=== PATIENT | female | born 1990 | race Caucasian/White ===

== ENCOUNTER 2021-11-10 02:55 | Inpatient (IN) | payer OTHER ==
[~2021-11-10] VITALS: Ht 157.5 cm; Wt 59.0 kg
[2021-11-10 03:03] VITALS: BP 77/55
--- NOTE | 2021-11-10 03:18 | NUR ---
pt taken to bed 12.ermd examining pt.
[2021-11-10] MEDS ORDERED: diphenhydrAMINE 50 MG/ML VIAL IVP ONE (03:20)
[2021-11-10] MEDS ORDERED: LACTATED RINGERS 1,000 ML IV ONE ×2 (03:20→04:40)
[2021-11-10] MEDS ORDERED: METOCLOPRAMIDE 10 MG/2 ML INJ VIAL IVP ONE (03:20)
--- NOTE | 2021-11-10 03:35 | NUR ---
31 Y/O FEMALE BIB FAMILY, C/O NAUSEA. PATIENT PRESENTS TO ED WITH NAUSEA, BODY ACHES, PALE SKIN AND EXCORIATION TO HEELS. PT STATES SHE WAS RECENTLY ADMITTED TO [facility] FOR DKA FOR 2-3 DAYS. PT WAS D/C FROM [facility] X1 DAY AGO. PT NO LONGER PRODUCES URINE. DENIES DIARRHEA AND CONSTIPATION; SKIN IS PALE/COOL/DRY; AAOX4 WITH WEAK GAIT; HR EVEN AND TACHYCARDIC; PT DENIES ANY FEVER, CP, SOB, OR COUGH AT THIS TIME; VSS; PATIENT POSITIONED FOR COMFORT; HOB ELEVATED; BEDRAILS UP X2; BED DOWN. ER MD MADE AWARE OF PT STATUS. PT HAS PE CATHETER ON LEFT ABDOMEN AND DIALYSIS SHUNT ON UPPER RIGHT CHEST. PT RECIEVES DIALYSIS M/W/F AND LAST GOT DIALYSIS ON SUNDAY. HX: DM, RENAL FAILURE NKDA
[2021-11-10 03:43] LABS: BASOPHILS # (AUTO) 0.1 K/uL (0.00-0.22); BASOPHILS % (AUTO) 0.8 % (0.0-2.0); EOSINOPHILS # (AUTO) 0.1 K/uL (0-0.4); EOSINOPHILS % (AUTO) 0.4 % (0.0-4.0); HEMATOCRIT 36.2 % (36-48); HEMOGLOBIN 11.6 g/dL (12.0-16.0); LYMPHOCYTES # (AUTO) 0.9 K/uL (2.5-16.5); LYMPHOCYTES % (AUTO) 6.3 % (20.5-51.1); MEAN CORPUSCULAR HEMOGLOBIN 29 pg (27-31); MEAN CORPUSCULAR HGB CONC 32 g/dL (33-37); MEAN CORPUSCULAR VOLUME 91.4 fL (80-94); MONOCYTES % (AUTO) 7.3 % (1.7-9.3); NEUTROPHILS # (AUTO) 11.6 K/uL (1.8-7.7); NEUTROPHILS % (AUTO) 85.2 % (42.2-75.2); PLATELET COUNT (AUTO) 325 K/uL (140-450); RED BLOOD CELL COUNT(AUTO) 3.96 MIL/uL (4.20-5.40); RED CELL DISTRIBUTION WIDTH 13.9 % (11.6-13.7); WHITE BLOOD COUNT (AUTO) 13.6 K/uL (4.8-10.8)
--- NOTE | 2021-11-10 03:56 | NUR ---
PT UNABLE TO MAKE URINE, PT HAS RENAL FAILURE AND ON DIALYSIS M/W/F/. URINE SAMPLE NOT COLLECTED.
[2021-11-10 03:57] LABS: ALBUMIN 3.4 g/dL (3.4-5.0); ANION GAP 18.3 (8-16); CARBON DIOXIDE 27.7 mmol/L (21-32); TOTAL BILIRUBIN 0.4 mg/dL (0.0-1.0)
[2021-11-10 03:59] LABS: CREATININE 4.3 mg/dL (0.6-1.3)
--- NOTE | 2021-11-10 04:50 | NUR ---
US AT BEDSIDE
[2021-11-10] MEDS ORDERED: METO-486 PO (06:08)
[2021-11-10] MEDS ORDERED: DIPH25TA53 PO (06:08)
--- NOTE | 2021-11-10 07:11 | NUR ---
REPORT RECEIVED FROM KHARI GARRETT FOR CONTINUITY OF CARE. PT IS A&OX4. IV SITE RT WRIST 24G INFUSING LR, INTACT, PATENT, GOOD BLOOD RETURN. SAFETY PRECAUTIONS IN PLACE. WILL CONTINUE TO MONITOR.
--- NOTE | 2021-11-10 07:11 | NUR ---
GAVE REPORT TO BARRERA GARRETT
[2021-11-10] MEDS ORDERED: LEVEMIR SUBQ (07:55)
[2021-11-10] MEDS ORDERED: LANS15EC28 PO (07:55)
[2021-11-10] MEDS ORDERED: LOSA100T1 PO (07:55)
[2021-11-10] MEDS ORDERED: FAMO-92 PO (07:55)
[2021-11-10] MEDS ORDERED: LABE200T9 PO (07:55)
[2021-11-10] MEDS ORDERED: NOVN SUBQ (07:55)
[2021-11-10] MEDS ORDERED: ONDANSETRON 4 MG/2 ML VIAL IVP ONE (08:20)
[2021-11-10] MEDS ORDERED: MORPHINE SULFATE 4 MG/ML SYR IVP ONE (08:40)
--- NOTE | 2021-11-10 08:46 | NUR ---
PT TAKEN TO CT SCAN VIA W/C
--- NOTE | 2021-11-10 08:52 | NUR ---
PT RETURNED FROM CT
--- NOTE | 2021-11-10 09:13 | NUR ---
PT RESTING COMFORTABLE IN BED.
--- NOTE | 2021-11-10 09:30 | NUR ---
Oxygen applied at 2 L per minute via NC. 02 saturation 100% by pulse oximetry.
[2021-11-10] MEDS ORDERED: HYDROcodone/APAP 5/325 MG 1 TAB TAB PO PRN (11:00)
[2021-11-10] MEDS ORDERED: ONDANSETRON 4 MG/2 ML VIAL IVP PRN (11:00)
[2021-11-10] MEDS ORDERED: NACL 0.9% 1,000 ML IV SCH (11:00)
[2021-11-10] MEDS ORDERED: cefTRIAXone 1,000 MG VIAL ONE (11:16)
[2021-11-10] MEDS ORDERED: INSULIN LISPRO SLIDING SCALE 100 UNITS/ML VIAL SUBQ PRN (11:20)
[2021-11-10] MEDS ORDERED: BLOOD GLUCOSE MONITORING 1 DEV DEV FS SCH (11:30)
[2021-11-10] MEDS ORDERED: DEXTROSE 50% 50 ML SYR IVP ONE (11:35)
[2021-11-10] MEDS ORDERED: DEXTROSE 50% 50 ML SYR IVP PRN ×2 (11:40→13:30)
--- NOTE | 2021-11-10 12:18 | NUR ---
DR CASTRO AT BEDSIDE EXAMINING PT
--- NOTE | 2021-11-10 12:28 | NUR ---
Patient will be admitted to care of DR. CASTRO. Admited to TELEMETRY. Will go to room 121B. Belongings list completed. Report to ANGEL GARRETT.
--- NOTE | 2021-11-10 12:45 | NUR ---
PT TRANSPORTED TO [facility] 121B. PT STABLE. NO S/S OF DISTRESS. CALL LIGHT IN REACH. ALL SAFETY MEASURES IN PLACE. MRSA COMPLETED
[2021-11-10] MEDS ORDERED: ONDANSETRON 4 MG/2 ML VIAL IM/IVP PRN (13:30)
[2021-11-10] MEDS ORDERED: MAG SULF 2000 MG/WATER PREMIX 50 ML IV PRN (13:30)
[2021-11-10] MEDS ORDERED: POTASSIUM CHLORIDE 10 MEQ TABER PO PRN (13:30)
[2021-11-10] MEDS ORDERED: DOCUSATE SODIUM 100 MG GELCAP PO PRN (13:30)
[2021-11-10] MEDS ORDERED: ZOLPIDEM 5 MG TAB PO PRN (13:30)
[2021-11-10] MEDS ORDERED: ACETAMINOPHEN 325 MG TAB PO PRN (13:30)
--- NOTE | 2021-11-10 13:34 | NUR ---
SKELP PROCESSOR ARRIVED TO TRANSPORT [facility]
[2021-11-10] MEDS ORDERED: METOCLOPRAMIDE 10 MG/2 ML INJ VIAL IVP PRN (13:40)
--- NOTE | 2021-11-10 15:00 | NUR ---
PT RETURNED TO [facility] 121B. PT COMPLAINS OF NAUSEA. WILL MEDICATE. CALL LIGHT IN REACH. ALL SAFETY MEASURES IN PLACE
[2021-11-10 16:00] VITALS: BP 147/87
[2021-11-10 16:04] LABS: PROTHROMBIN TIME 13.2 secs (10.8-13.4)
[2021-11-10 16:14] LABS: CHOL/HDL RATIO 3.6 (1-4.5); MAGNESIUM 2.2 mg/dL (1.8-2.4); PHOSPHORUS 4.8 mg/dL (2.5-4.9); THYROID STIMULATING HORMONE 1.28 uIU/mL (0.34-3.74)
[2021-11-10] MEDS: HYDROcodone/APAP 5/325 MG 1 TAB TAB PO PRN (16:29)
[2021-11-10] MEDS: BLOOD GLUCOSE MONITORING 1 DEV DEV FS SCH ×2 (16:39→21:42)
--- NOTE | 2021-11-10 17:39 | NUR ---
PT RESTING IN BED WITH EYES CLOSED. PT STABLE. NO S/S OF DISTRESS. CALL LIGHT IN REACH. ALL SAFETY MEASURES IN PLACE. PT ON RA
--- NOTE | 2021-11-10 18:22 | NUR ---
RENETTA NOTIFIED REGARDING PT'S HEMODIALYSIS ORDERED FOR TOMORROW.
--- NOTE | 2021-11-10 19:02 | NUR ---
pt consent signed for hemodialysis. notified dialysis nurse Moffett for dialysis 11/11/21
--- NOTE | 2021-11-10 19:18 | NUR ---
ENDORSED PT TO TWITCHELL OPERATOR NURSE.
--- NOTE | 2021-11-10 19:20 | NUR ---
RECEIVED BEDSIDE ENDORSEMENT FROM AM NURSE. PATIENT IS SLEEPING. ON ROOM AIR. NO S/S OF RESPIRATORY DISTRESS. BREATHING REGULAR UNLABORED. SAFETY MEASURES IN PLACE. CALL LIGHT ON EASY REACH. WILL CONTINUE TO MONITOR PT.
[2021-11-10 20:00] VITALS: BP 160/96
--- NOTE | 2021-11-10 21:35 | NUR ---
SCHEDULED DUE MEDICATIONS GIVEN.
[2021-11-10] MEDS: LABETALOL 200 MG TAB PO SCH (21:36)
[2021-11-10] MEDS: INSULIN LISPRO SLIDING SCALE 100 UNITS/ML VIAL SUBQ PRN (21:42)
--- NOTE | 2021-11-10 21:42 | NUR ---
BLOOD SUGAR WAS 166. HUMALOG INSULIN ADMINISTERED ORDERED PER SLIDING SCALE.
[2021-11-11] VITALS (7 sets, daily range): BP systolic 107–140; BP diastolic 67–90
--- NOTE | 2021-11-11 00:07 | NUR ---
PATIENT COMPLAINED OF NAUSEA. REGLAN PRN GIVEN ORDERED.
[2021-11-11] MEDS: MORPHINE SULFATE 2 MG/ML SYR IVP PRN ×4 (00:17→22:50)
[2021-11-11 06:02] LABS: BASOPHILS # (AUTO) 0.2 K/uL (0.00-0.22); BASOPHILS % (AUTO) 2.4 % (0.0-2.0); EOSINOPHILS # (AUTO) 0.2 K/uL (0-0.4); EOSINOPHILS % (AUTO) 2.5 % (0.0-4.0); HEMATOCRIT 33.5 % (36-48); HEMOGLOBIN 11.1 g/dL (12.0-16.0); LYMPHOCYTES # (AUTO) 1.2 K/uL (2.5-16.5); LYMPHOCYTES % (AUTO) 17.4 % (20.5-51.1); MEAN CORPUSCULAR HEMOGLOBIN 31 pg (27-31); MEAN CORPUSCULAR HGB CONC 33 g/dL (33-37); MEAN CORPUSCULAR VOLUME 91.9 fL (80-94); MONOCYTES # (AUTO) 0.5 K/uL (0.8-1.0); MONOCYTES % (AUTO) 7.9 % (1.7-9.3); NEUTROPHILS # (AUTO) 4.8 K/uL (1.8-7.7); NEUTROPHILS % (AUTO) 69.8 % (42.2-75.2); PLATELET COUNT (AUTO) 264 K/uL (140-450); RED BLOOD CELL COUNT(AUTO) 3.64 MIL/uL (4.20-5.40); RED CELL DISTRIBUTION WIDTH 14.2 % (11.6-13.7); WHITE BLOOD COUNT (AUTO) 6.9 K/uL (4.8-10.8)
[2021-11-11 06:14] LABS: MAGNESIUM 2.3 mg/dL (1.8-2.4)
[2021-11-11 06:31] LABS: ANION GAP 20.3 (8-16); CARBON DIOXIDE 23.5 mmol/L (21-32); POTASSIUM 4.8 mmol/L (3.5-5.1)
[2021-11-11 06:35] LABS: CREATININE 6.2 mg/dL (0.6-1.3)
[2021-11-11] MEDS: BLOOD GLUCOSE MONITORING 1 DEV DEV FS SCH ×4 (06:38→21:25)
[2021-11-11] MEDS: INSULIN LISPRO SLIDING SCALE 100 UNITS/ML VIAL SUBQ PRN ×4 (06:38→21:27)
--- NOTE | 2021-11-11 06:53 | NUR ---
ISAI FROM LAB CALLED REPORTED CRITICAL LAB VALUE CREATININE 6.2. NOT REPORTED TO MD PT IS DIALYSIS PT AND SCHEDULED FOR DIALYSIS TODAY.
--- NOTE | 2021-11-11 07:12 | NUR ---
PATIENT COMPLAINED OF SEVERE CHEST PAIN 06/03. MORPHINE PRN GIVEN.
--- NOTE | 2021-11-11 07:20 | NUR ---
ENDORSED TO AM NURSE FOR CONTINUITY OF CARE. PATIENT STATED PAIN IS 5/10 NOW.
--- NOTE | 2021-11-11 07:21 | NUR ---
RECEIVED PATIENT FROM MANAGER MAC NURSE FOR CONTINUITY OF CARE. PATIENT IS ON TELE MONITOR. A/A/O X4. RESPIRATORY EVEN AND UNLABORED, ON 2L OXYGEN VIA NC FOR COMFORT. NO SIGN OF DISTRESS NOTED. SKIN WARM, DRY, NON DIAPHORETIC. IV ON RIGHT WRIST 24G, INTACT AND PATENT, SALINE LOCK. HD CATH NOTED ON RIGHT UPPER CHEST, AND PERITONEAL CATH ON LEFT ABD. PATIENT REPORT PAIN TOLERABLE. ABLE TO MAKE NEED KNOWN. PLAN OF CARE DISCUSSED, PATIENT VERBALIZED UNDERSTANDING. CALL LIGHT WITHIN REACH. WILL CONTINUE TO MONITOR.
--- NOTE | 2021-11-11 08:37 | NUR ---
SPOKE WITH HD NURSE, HOLD HTN MEDICATIONS- LABETALOL 20MG AND LOSARTAN 100MG, WILL GIVE AFTER DIALYSIS.
[2021-11-11] MEDS: LOSARTAN 50 MG TAB PO SCH (09:00)
[2021-11-11] MEDS ORDERED: NON-FORMULARY ITEM (Famotidine* (Pepcid*) 40 MG) PO SCH (09:00)
[2021-11-11] MEDS: LABETALOL 200 MG TAB PO SCH ×2 (09:00→21:23)
--- NOTE | 2021-11-11 10:42 | NUR ---
PATIENT HAS BEEN SCREENED AND CATEGORIZED HIGH NUTRITION RISK. PATIENT WILL BE SEEN WITHIN 1-2 DAYS OF ADMISSION. 11/11/21-10/12/[address]
--- NOTE | 2021-11-11 10:53 | NUR ---
NOTIFIED DR CASTRO THAT PT COMPLAINS OF CHEST PAIN LIKE PRESSURE 05/03. TOBR, STAT ORDER TROPONIN, CXR, AND EKG. WILL FOLLOW ORDER.
--- NOTE | 2021-11-11 11:09 | NUR ---
TEXT DR SHAY REGARDING PATIENT C/O CHEST PAIN, AND TELE MONITOR SHOWS SR WITH ST DEPRESS. AWARE, NO NEW ORDER.
--- NOTE | 2021-11-11 12:10 | NUR ---
BS CHECK 152, 2 UNITS OF INSULIN GIVEN WITH EDUCATION, PATIENT VERBALIZED UNDERSTANDING. PATIENT TOLERATED WELL. NO SIGN OF DISTRESS NOTED. CALL LIGHT WITHIN REACH. WILL CONTINUE TO MONITOR.
--- NOTE | 2021-11-11 12:19 | NUR ---
WOUND CARE NOTE: PT. IS AAX4, PER PT. SHE FOLLOW HER FOOT DOCTOR REGULARLY AND SHE IS AWARE OF DIABETIC ULCERS BILATERAL FOOT. POC DISCUSSED WITH PT. RECOMMEND TO FOLLOW UP PODIATRY CARE OUT PATIENT. PT. VERBALIZES UNDERSTANDING. -LEFT HEEL 3X3CM BROWN STABLE ESCHAR TISSUE,KISHAN-WOUND DRY FLAKY SKIN -RIGHT HALLUX PLANTAR AREA 2X2CM BROWN STABLE ESCHAR TISSUE KISHAN-WOUND SKIN FLAT AND INTACT -RIGHT 2ND TOE 0.5X0.5CM BROWN STABLE ESCHAR TISSUE KISHAN-WOUND SKIN FLAT AND INTACT -RIGHT HEEL 2X2CM BROWN STABLE ESCHAR TISSUE, KISHAN WOUND DRY FLAKY SKIN RECOMMENDATION: -PAINT BILATERAL HEEL AND RIGHT TOES WITH BETADINE BID AND ROCHELLE. -FOOT EXAM AND FOOT CARE DAILY -PLEASE WEAR PROPER FITTED CLOSE SHOES, NO FLIP FLAPS -FOLLOW UP PODIATRY CARE OUT PATIENT.
[2021-11-11] MEDS: GAUZE TP SCH (13:00)
--- NOTE | 2021-11-11 13:39 | NUR ---
DC PLANNING: RECEIVED A CALL FROM [employer]. [phone] SPOKE WITH KARRI STARR UPDATED PATIENT'S CLINICAL, REQUESTED ALL CLINICALS TO BE FAXED TO [phone] AND RECOMMENDED HOME HEALTH FOR MEDICATION MANAGEMENT AND ADJUNCT BUSINESS INSTRUCTOR EVAL. STARR TO FOLLOW
--- NOTE | 2021-11-11 14:00 | NUR ---
PATIENT IS RESTING IN BED, DIALYSIS NURSE AT BEDSIDE, NO SIGN OF DISTRESS NOTED. CALL LIGHT WITHIN REACH. WILL CONTINUE TO MONITOR.
[2021-11-11] MEDS ORDERED: ASPIRIN 81 MG TAB.CHEW PO SCH (14:29)
[2021-11-11 14:39] LABS: BASOPHILS % (AUTO) 0.4 % (0.0-2.0); EOSINOPHILS # (AUTO) 0.2 K/uL (0-0.4); EOSINOPHILS % (AUTO) 3.4 % (0.0-4.0); HEMATOCRIT 31.5 % (36-48); HEMOGLOBIN 10.3 g/dL (12.0-16.0); LYMPHOCYTES # (AUTO) 1.5 K/uL (2.5-16.5); MEAN CORPUSCULAR HEMOGLOBIN 30 pg (27-31); MEAN CORPUSCULAR HGB CONC 33 g/dL (33-37); MONOCYTES # (AUTO) 0.6 K/uL (0.8-1.0); MONOCYTES % (AUTO) 8.7 % (1.7-9.3); NEUTROPHILS # (AUTO) 4.6 K/uL (1.8-7.7); NEUTROPHILS % (AUTO) 66.5 % (42.2-75.2); PLATELET COUNT (AUTO) 275 K/uL (140-450); RED BLOOD CELL COUNT(AUTO) 3.43 MIL/uL (4.20-5.40)
[2021-11-11] MEDS ORDERED: HEPARIN PER PHARMACY MC PRN (14:45)
[2021-11-11] MEDS ORDERED: hePARIN / DEXT 5% PREMIX 250 ML IV SCH (14:45)
--- NOTE | 2021-11-11 16:10 | NUR ---
HD FINISHED, PATIENT TOLERATED WELL. NO SIGN OF DISTRESS NOTED. CALL LIGHT WITHIN REACH. WILL CONTINUE TO MONITOR.
[2021-11-11] MEDS: hePARIN / DEXT 5% PREMIX 250 ML IV SCH (16:36)
--- NOTE | 2021-11-11 16:36 | NUR ---
HEPARIN DRIP START @700 UNITS/HR WITH 3000UNIT BOLUS, COSIGN BY CHARGE NURSE. EDUCATION GIVEN, PATIENT VERBALIZED UNDERSTANDING.
--- NOTE | 2021-11-11 19:15 | NUR ---
ENDORSED PT TO MOISTURE MACHINE TENDER NURSE FOR CONTINUITY OF CARE. PATIENT IS STABLE.
--- NOTE | 2021-11-11 19:35 | NUR ---
RECEIVED PT FROM AM NURSE IN STABLE CONDITION.BREATHING EVEN AND UNLABORED.ALL SAFETY MEASURES IN PLACE
--- NOTE | 2021-11-11 21:35 | NUR ---
ALL MEDICATIONS GIVEN..BLD GLUCOSE 304, 8 UNITS HUMALOG GIVEN AND 35 UNITS LANTUS GIVEN
[2021-11-11] MEDS: INSULIN LANTUS 100 UNITS/ML 10 ML VIAL SUBQ SCH (21:38)
[2021-11-12] VITALS: BP 132/87
[2021-11-12] MEDS: GAUZE TP SCH ×2 (01:00→12:26)
[2021-11-12] MEDS: hePARIN / DEXT 5% PREMIX 250 ML IV SCH ×4 (02:29→22:26)
[2021-11-12 04:00] VITALS: BP 119/75
--- NOTE | 2021-11-12 04:00 | NUR ---
PATIENT SLEEPING AT THIS TIME. BREATHING AND UNLABORED. ALL SAFETY PRECAUTIONS IN PLACE.
--- NOTE | 2021-11-12 06:00 | NUR ---
PT AWAKE .BLD GLUCOSE AT 113. NO INSULIN GIVEN. PT IS STABLE. NO DISTRESS NOTED.
[2021-11-12] MEDS: MORPHINE SULFATE 2 MG/ML SYR IVP PRN ×4 (06:52→22:33)
[2021-11-12] MEDS: BLOOD GLUCOSE MONITORING 1 DEV DEV FS SCH ×4 (06:55→21:10)
--- NOTE | 2021-11-12 07:20 | NUR ---
ENDORSED PATIENT TO AM NURSE FOR CONTINUITY OF CARE.
--- NOTE | 2021-11-12 07:35 | NUR ---
RECEIVED BEDSIDE REPORT FROM DAIRY EQUIPMENT MECHANIC NURSE FOR CONTINUITY OF CARE. A&OX4. ON 2L O2 NC WITH BREATHING UNLABORED. ON TELE MONITOR. AMBULATORY INDEPDNENTLY. SKIN IS WARM AND DRY. BILAT HEEL ULCERS INTACT. IV IS IN THE LEFT FA 24 GAUGE WITH HEPARIN DRIP RUNNING AT 9.5 ML/HR. RIGHT UPPER CHEST HD CATH IN PLACE. PT IS STABLE. WILL CONTINUE TO MONITOR.
[2021-11-12 08:00] VITALS: BP 121/88
[2021-11-12] MEDS: ATORVASTATIN 20 MG TAB PO SCH (08:24)
[2021-11-12] MEDS: LOSARTAN 50 MG TAB PO SCH (08:25)
[2021-11-12] MEDS: FAMOTIDINE 20 MG TAB PO SCH (08:26)
[2021-11-12] MEDS: LABETALOL 200 MG TAB PO SCH ×2 (08:26→21:04)
[2021-11-12] MEDS: ECOTRIN 81 MG TABEC PO SCH (08:26)
--- NOTE | 2021-11-12 08:30 | NUR ---
TOOLING INSPECTOR AT BEDSIDE DRAWING LABS FOR PTT, CBC, BMP. HEPARIN DRIP STILL INFUSING.
[2021-11-12 09:12] LABS: BASOPHILS # (AUTO) 0.2 K/uL (0.00-0.22); BASOPHILS % (AUTO) 3.1 % (0.0-2.0); EOSINOPHILS # (AUTO) 0.2 K/uL (0-0.4); HEMATOCRIT 32.5 % (36-48); HEMOGLOBIN 10.7 g/dL (12.0-16.0); LYMPHOCYTES # (AUTO) 1.7 K/uL (2.5-16.5); LYMPHOCYTES % (AUTO) 30.4 % (20.5-51.1); MEAN CORPUSCULAR HEMOGLOBIN 30 pg (27-31); MEAN CORPUSCULAR HGB CONC 33 g/dL (33-37); MEAN CORPUSCULAR VOLUME 91.5 fL (80-94); MONOCYTES # (AUTO) 0.5 K/uL (0.8-1.0); MONOCYTES % (AUTO) 9.5 % (1.7-9.3); PLATELET COUNT (AUTO) 307 K/uL (140-450); RED BLOOD CELL COUNT(AUTO) 3.55 MIL/uL (4.20-5.40); RED CELL DISTRIBUTION WIDTH 13.6 % (11.6-13.7); WHITE BLOOD COUNT (AUTO) 5.6 K/uL (4.8-10.8)
[2021-11-12 09:22] LABS: ANION GAP 16.6 (8-16); CARBON DIOXIDE 26.2 mmol/L (21-32); POTASSIUM 3.8 mmol/L (3.5-5.1)
[2021-11-12 09:27] LABS: MAGNESIUM 2.2 mg/dL (1.8-2.4); PHOSPHORUS 4.5 mg/dL (2.5-4.9)
--- NOTE | 2021-11-12 09:33 | NUR ---
PTT STILL PENDING. WILL WAIT FOR RESULTS TO CHANGE HEPARIN DRIP.
--- NOTE | 2021-11-12 10:15 | NUR ---
HEPARIN DRIP CHANGED FROM 9.5 TO 11 ML/HR FOR PTT OF 41.2. BOLUS OF 1500 UNITS OF HEPARIN GIVEN IVP. NO SIGNS OF BLEEDING OR BRUISING. PT IS STABLE AT THIS TIME. NEXT LAB DRAW FOR PTT AT 1615.
--- NOTE | 2021-11-12 10:49 | NUR ---
MORPHINE WAS GIVEN IVP FOR PAIN IN THE CHEST AT A SCALE OF 8/10. PT STATES IT AN ACHING PAIN. WILL CONTINUE TO MONITOR.
[2021-11-12 12:00] VITALS: BP 96/60
--- NOTE | 2021-11-12 13:42 | NUR ---
INFORMED DR. CASTRO THAT PT IS HAVING CHEST PAIN 10/10 STABBING IN CHARACTERISTIC. UNRELIEVED BY MORPHINE 2MG IVP. SHE ALSO GAVE TORB FOR TROPONIN STAT AND TO PAGE MINE MOTOR OPERATOR, DR. HAYS.
[2021-11-12] MEDS ORDERED: MORPHINE SULFATE 2 MG/ML SYR IVP SCH (14:00)
--- NOTE | 2021-11-12 14:05 | NUR ---
MORPHINE WAS GIVEN IVP FOR CHEST PAIN 07/[address] CASTRO. PT STATES THE PAIN SQUEEZING. BP WAS 114/68 PRIOR TO ADMINISTRATION OF MEDICATION. WILL CONTINUE TO MONITOR. ALSO INFORMED DR. HAYS OF THE CHEST PAIN UNRELIEVED BY MORPHINE AND THE STAT TROPONIN DRAW THAT IS PENDING. WILL WAIT FOR RESPONSE.
--- NOTE | 2021-11-12 14:08 | NUR ---
DR. HAYS AT BEDSIDE ASSESSING PT. EKG ORDERED. RT ON THEIR WAY TO COMPLETE EKG.
--- NOTE | 2021-11-12 14:30 | NUR ---
EKG COMPLETE AND DR. HAYS STATED THERE IS NO CHANGE IN THE EKG FROM EARLIER. NO NEW ORDERS.
[2021-11-12 16:00] VITALS: BP 117/81
--- NOTE | 2021-11-12 16:18 | NUR ---
CALLED [employer] TO INFORM THEM THAT THE TIMED DRAW PTT IS DUE AT 1615. THEY WILL BE HERE SHORTLY.
--- NOTE | 2021-11-12 17:46 | NUR ---
HEPARIN DRIP CHANGED TO 12.5 ML/HR. PTT LEVEL WAS 44.8 AND BOLUS OF HEPARIN GIVEN IVP 1500 UNITS.
--- NOTE | 2021-11-12 18:24 | NUR ---
PT WAS GIVEN MORPHINE FOR CHEST PAIN AT A SCALE OF 7/10. BP WAS STABLE PRIOR TO ADMINISTRATION OF MEDICATION. WILL MONITOR PAIN.
--- NOTE | 2021-11-12 19:11 | NUR ---
ENDORSED PT TO HOSPICE HOME HEALTH AIDE NURSE FOR CONTINUITY OF CARE. PT IS STABLE. PLAN OF CARE DISCUSSED.
--- NOTE | 2021-11-12 19:12 | NUR ---
RECEIVED REPORT FROM MORNING SHIFT NURSE. PATIENT IS WELL RESTED. NO ACUTE DISTRESS. O2 AT 2L VIA NC TOLERATING WELL. ONGOING HEPARIN DRIP AT 12.5 ML/HR. SAFETY MEASURES IN PLACE. CALL LIGHT WITHIN REACH. WILL CONTINUE TO MONITOR.
[2021-11-12 20:00] VITALS: BP 119/71
--- NOTE | 2021-11-12 21:04 | NUR ---
DUE MEDS GIVEN ORDERED.
--- NOTE | 2021-11-12 21:10 | NUR ---
BLOOD SUGAR WAS 210. HUMALOG INSULIN ADMINISTERED ORDERED PER SLIDING SCALE.
[2021-11-12] MEDS: INSULIN LISPRO SLIDING SCALE 100 UNITS/ML VIAL SUBQ PRN (21:11)
[2021-11-12] MEDS: INSULIN LANTUS 100 UNITS/ML 10 ML VIAL SUBQ SCH (21:12)
[2021-11-13] VITALS: BP 103/65
--- NOTE | 2021-11-13 01:08 | NUR ---
NELDA FROM LAB CALLED REPORTING CRITICAL ABNORMAL LAB. NO CHANGE FOR HEPARIN DRIP PER PROTOCOL.
[2021-11-13] MEDS: GAUZE TP SCH ×2 (01:12→12:59)
[2021-11-13 04:00] VITALS: BP 123/81
[2021-11-13] MEDS: MORPHINE SULFATE 2 MG/ML SYR IVP PRN ×4 (04:07→23:07)
--- NOTE | 2021-11-13 04:07 | NUR ---
MORPHINE WAS GIVEN FOR CHEST PAIN 05/03.
[2021-11-13] MEDS: BLOOD GLUCOSE MONITORING 1 DEV DEV FS SCH ×4 (06:33→22:44)
--- NOTE | 2021-11-13 06:33 | NUR ---
CHECKED BLOOD SUGAR WAS 227, HUMALOG INSULIN GIVEN ORDERED PER SLIDING SCALE.
[2021-11-13] MEDS: INSULIN LISPRO SLIDING SCALE 100 UNITS/ML VIAL SUBQ PRN ×3 (06:34→22:51)
--- NOTE | 2021-11-13 07:15 | NUR ---
RECEIVED BEDSIDE REPORT FROM HEADER BOSS NURSE FOR CONTINUITY OF CARE. PT IS AWAKE AND ALERT. A&OX4. ON 2L O2 NC WITH BREATHING UNLABORED. ON TELE MONITOR. AMBULATORY INDEPENDENTLY. SKIN IS WARM AND DRY. BILATERAL HEEL ULCER AND RIGHT FOOT BIG TOE ULCER. RIGHT UPPER CHEST PERMACATH. LEFT HAND 22 GAUGE RUNNING HEPARIN DRIP AT 12.5 ML/HR. PT IS STABLE. DENIES CHEST PAIN. PLAN OF CARE DISCUSSED.
--- NOTE | 2021-11-13 07:17 | NUR ---
ENDORSED PATIENT TO AM RN FOR CONTINUITY OF CARE. PT IS STABLE
[2021-11-13 07:35] LABS: BASOPHILS % (AUTO) 0.3 % (0.0-2.0); EOSINOPHILS # (AUTO) 0.2 K/uL (0-0.4); EOSINOPHILS % (AUTO) 3.8 % (0.0-4.0); HEMATOCRIT 31.2 % (36-48); HEMOGLOBIN 10.2 g/dL (12.0-16.0); LYMPHOCYTES # (AUTO) 1.6 K/uL (2.5-16.5); LYMPHOCYTES % (AUTO) 32.7 % (20.5-51.1); MEAN CORPUSCULAR HEMOGLOBIN 30 pg (27-31); MEAN CORPUSCULAR HGB CONC 33 g/dL (33-37); MEAN CORPUSCULAR VOLUME 91.2 fL (80-94); MONOCYTES # (AUTO) 0.4 K/uL (0.8-1.0); MONOCYTES % (AUTO) 9.1 % (1.7-9.3); NEUTROPHILS # (AUTO) 2.7 K/uL (1.8-7.7); NEUTROPHILS % (AUTO) 54.1 % (42.2-75.2); PLATELET COUNT (AUTO) 308 K/uL (140-450); RED BLOOD CELL COUNT(AUTO) 3.42 MIL/uL (4.20-5.40); RED CELL DISTRIBUTION WIDTH 13.8 % (11.6-13.7); WHITE BLOOD COUNT (AUTO) 4.9 K/uL (4.8-10.8)
[2021-11-13 07:39] LABS: ANION GAP 17.4 (8-16); CARBON DIOXIDE 26.7 mmol/L (21-32); POTASSIUM 4.1 mmol/L (3.5-5.1)
--- NOTE | 2021-11-13 07:52 | NUR ---
RECEIVED CRITICAL FROM LAB FOR PTT 64.6. PT ON HEPARIN DRIP. NO CHANGE IN HEPARIN DRIP AT THIS TIME, WITHIN THERAPEUTIC RANGE. HEPARIN DRIP IS INFUSING AT 12.5 ML/HR. NEXT LAB DRAW FOR PTT WILL BE IN 24 HOURS; 0700 AM 11/14/21.
[2021-11-13] MEDS: hePARIN / DEXT 5% PREMIX 250 ML IV SCH ×2 (07:55→18:15)
[2021-11-13 07:58] LABS: MAGNESIUM 2.3 mg/dL (1.8-2.4); PHOSPHORUS 7.4 mg/dL (2.5-4.9)
[2021-11-13 08:00] VITALS: BP 119/81
[2021-11-13 08:41] LABS: CREATININE 6.9 mg/dL (0.6-1.3)
[2021-11-13] MEDS: LOSARTAN 50 MG TAB PO SCH (09:00)
--- NOTE | 2021-11-13 09:23 | NUR ---
PT STATES SHE HAS PAIN AT A SCALE OF 7/10 IN THE CHEST. PT STATES THE PAIN PRESSURE. PT WAS GIVEN MORPHINE FOR PAIN ORDERED. BP STABLE PRIOR TO ADMINISTRATION OF MEDICATION.
[2021-11-13] MEDS: ATORVASTATIN 20 MG TAB PO SCH (09:24)
[2021-11-13] MEDS: LABETALOL 200 MG TAB PO SCH ×2 (09:24→22:44)
[2021-11-13] MEDS: ECOTRIN 81 MG TABEC PO SCH (09:24)
[2021-11-13 12:00] VITALS: BP 110/72
--- NOTE | 2021-11-13 12:00 | NUR ---
PT IS AWAKE AND ALERT. LAYING IN BED, WATCHING TV. NO DISTRESS NOTED AT THIS TIME. HEPARIN DRIP INFUSING IN LEFT HAND IV. DENIES PAIN. WILL CONTINUE TO MONITOR.
[2021-11-13] MEDS: HYDROcodone/APAP 5/325 MG 1 TAB TAB PO PRN (13:55)
--- NOTE | 2021-11-13 13:55 | NUR ---
PT IS STATING SHE HAS PAIN AT A SCALE OF 6/10 IN THE CHEST. PT WAS GIVEN NORCO FOR PAIN. WILL CONTINUE TO MONITOR PAIN.
[2021-11-13 16:00] VITALS: BP 118/65
--- NOTE | 2021-11-13 17:00 | NUR ---
PT IS AWAKE AND STABLE AT THIS TIME. NO COMPLAINTS. DENIES CHEST PAIN. WOUNDS ON FEET WERE CLEANSED PER PROTOCOL. WILL CONTINUE TO MONITOR.
--- NOTE | 2021-11-13 18:16 | NUR ---
PT WAS GIVEN MORPHINE FOR PAIN IN THE CHEST 04/02. BP WAS STABLE PRIOR TO ADMINISTRATION OF MEDICATION. HEPARIN BAG WAS CHANGED, RATE STAYED THE SAME 12.5 ML/HR. NEXT PTT DRAW AT 0700 AM TOMORROW.
--- NOTE | 2021-11-13 19:19 | NUR ---
ENDORSED PT TO BANQUET SET UP PERSON NURSE FOR CONTINUITY OF CARE. PT IS STABLE. PLAN OF CARE DISCUSSED.
--- NOTE | 2021-11-13 20:25 | NUR ---
HANDOFF FROM TAMI WALL. SPOKE WITH TAMI JACKSON, FOR HEMODIALYSIS IN AM. GIL OSCAR RN
[2021-11-13 22:41] VITALS: BP 108/66
[2021-11-13] MEDS: INSULIN LANTUS 100 UNITS/ML 10 ML VIAL SUBQ SCH (22:50)
[2021-11-14 00:34] VITALS: BP 141/80
[2021-11-14] MEDS: GAUZE TP SCH ×2 (01:30→13:00)
[2021-11-14 04:32] VITALS: BP 118/65
[2021-11-14] MEDS: MORPHINE SULFATE 2 MG/ML SYR IVP PRN (04:41)
--- NOTE | 2021-11-14 06:54 | NUR ---
HANDOFF WITH TAMI CARL. GIL OSCAR RN
[2021-11-14] MEDS: BLOOD GLUCOSE MONITORING 1 DEV DEV FS SCH ×4 (07:04→20:48)
--- NOTE | 2021-11-14 07:30 | NUR ---
RECEIVED REPORT FROM DRUG ROOM CLERK NURSE FOR CONTINUITY OF CARE. PT AWAKE IN BED. BREATHING SYMMETRICAL. ON HEPARIN DRIP. DENIES PAIN. CALL LIGHT WITHIN REACH. ALL SAFETY MEASURES IN PLACE.
[2021-11-14 08:00] VITALS: BP 124/80
--- NOTE | 2021-11-14 08:30 | NUR ---
PT RECEIVING HEMODIALYSIS AT THIS TIME
[2021-11-14 08:49] LABS: BASOPHILS # (AUTO) 0.2 K/uL (0.00-0.22); BASOPHILS % (AUTO) 3.9 % (0.0-2.0); EOSINOPHILS # (AUTO) 0.2 K/uL (0-0.4); EOSINOPHILS % (AUTO) 4.2 % (0.0-4.0); HEMATOCRIT 29.6 % (36-48); HEMOGLOBIN 9.8 g/dL (12.0-16.0); LYMPHOCYTES # (AUTO) 1.3 K/uL (2.5-16.5); LYMPHOCYTES % (AUTO) 28.2 % (20.5-51.1); MEAN CORPUSCULAR HEMOGLOBIN 30 pg (27-31); MEAN CORPUSCULAR HGB CONC 33 g/dL (33-37); MEAN CORPUSCULAR VOLUME 90.8 fL (80-94); MONOCYTES # (AUTO) 0.2 K/uL (0.8-1.0); MONOCYTES % (AUTO) 4.3 % (1.7-9.3); NEUTROPHILS # (AUTO) 2.6 K/uL (1.8-7.7); NEUTROPHILS % (AUTO) 59.4 % (42.2-75.2); PLATELET COUNT (AUTO) 321 K/uL (140-450); RED BLOOD CELL COUNT(AUTO) 3.26 MIL/uL (4.20-5.40); RED CELL DISTRIBUTION WIDTH 13.8 % (11.6-13.7); WHITE BLOOD COUNT (AUTO) 4.4 K/uL (4.8-10.8)
[2021-11-14] MEDS: ECOTRIN 81 MG TABEC PO SCH (09:00)
[2021-11-14] MEDS: LABETALOL 200 MG TAB PO SCH ×2 (09:00→21:00)
[2021-11-14] MEDS: ATORVASTATIN 20 MG TAB PO SCH (09:00)
[2021-11-14] MEDS: LOSARTAN 50 MG TAB PO SCH (09:00)
[2021-11-14] MEDS: FAMOTIDINE 20 MG TAB PO SCH (09:00)
[2021-11-14 09:17] LABS: CREATININE 7.2 mg/dL (0.6-1.3)
[2021-11-14 09:19] LABS: MAGNESIUM 2.2 mg/dL (1.8-2.4); PHOSPHORUS 5.9 mg/dL (2.5-4.9)
--- NOTE | 2021-11-14 09:30 | NUR ---
REPORTED CREATININE LEVEL 7.[address] REDDY, NO CHANGES AT THIS TIME. PT HAS ESRD AND IS RECEIVING HEMODIALYSIS AT THIS TIME
--- NOTE | 2021-11-14 10:25 | NUR ---
REPORTED PTT RESULT 110.[address] REDDY. PT ON HEPARIN DRIP, PER PROTOCOL HOLD FOR ONE HOUR AND REDUCE BY 200UNITS. HEPARIN DRIP HELD AT THIS TIME AND WILL TURN ON AT 1125. FOR PTT AT 1725
--- NOTE | 2021-11-14 11:10 | NUR ---
PT DONE WITH HEMODIALYSIS, 1.6L WERE TAKEN OUT.
--- NOTE | 2021-11-14 11:31 | NUR ---
HEPARIN DRIP STARTED AGAIN, REDUCED DRIP TO 1050UNITS/HR. PER PROTOCOL TO HOLD FOR 1 HR AND REDUCE 200UNITS/HR AND START. TO DRAW PTT IN 6HRS WHICH IS 1725.
--- NOTE | 2021-11-14 11:40 | NUR ---
SPOKE WITH ERIN FROM LABS RE: PTT BLOOD DRAW. PT NOT FOR PTT BLOOD DRAW AT 1125, UNABLE TO DC ORDER BUT PT IS FOR PTT BLOOD DRAW AT 1725.
[2021-11-14 12:00] VITALS: BP 107/64
--- NOTE | 2021-11-14 13:47 | NUR ---
INSERTED ANOTHER IV LINE ON RIGHT HAND 22G PT FOR LEXISCAN. PT HAS IV LINE ON LEFT HAND 22G BUT INFUSING WITH HEPARIN DRIP.
[2021-11-14] MEDS ORDERED: REGADENOSON 0.4 MG/5 ML SYR IV SCH (14:00)
--- NOTE | 2021-11-14 14:08 | NUR ---
CLARIFIED AND VERIFIED WITH DR REDDY REGARDING DC HEPARIN DRIP ORDER. STATED DC.
--- NOTE | 2021-11-14 14:10 | NUR ---
PT TAKEN TO LAB TO SANGEETA PROCEDURE VIA WHEELCHAIR
--- NOTE | 2021-11-14 14:15 | NUR ---
DC PLANNING: CM SPOKE WITH THE PATIENT AT BEDSIDE, CONFIRMED HER ADDRESS AND PHONE NUMBER. SHE LIVES IN A SINGLE STORY HOUSE WITH HER SISTER AND UNCLE AND IS ON SSI BECAUSE Of HER ESRD. SHE GOES TO [facility] ON M,W,F FROM 9 AM TO 12 PM AND USES [facility] TRANSPORT. SHE SEES HER PCP MARK MERRILL MONTHLY AND HAS DME OF GLUCOMETER AND FWW. STATES THAT SHE'S NOT COMPLIANT WITH AN ADA DIET AND HAS BEEN SEEING A STACKER STRAIGHTENER BECAUSE OF FOOT BLISTERS. SHE USES A FWW TO WALK LONG DISTANCES AND WAS REFERRED TO [facility] VIA [employer] FOR A SAFETY EVALUATION AND MEDICATION OVERSIGHT FOR COMPLIANCE. CM WILL FOLLOW. Addendum: 11/14/21 at 1428 by Park Gil CM Amended: Links added. Addendum: 11/15/21 at 1033 by Park Gil CM DC PLANNING: RO SPOKE WITH ALBINA AT [facility] ([phone]), THEY HAVE ACCEPTED THE PATIENT PENDING DISCHARGE. CM ENDORSED THAT THE PATIENT WILL DC HOME TODAY AND THAT A MESSAGE WAS LEFT FOR THE RO ZENG AT [facility] REGARDING A DOCUMENT THAT [facility] NEEDS TO START SERVICE. CM WILL FOLLOW.
[2021-11-14] MEDS ORDERED: EPOETIN ALFA-EPBX 4,000 UNITS/ML VIAL IV SCH (15:00)
[2021-11-14 16:00] VITALS: BP 115/70
--- NOTE | 2021-11-14 16:00 | NUR ---
PT BACK FROM LEXISCAN PROCEDURE. IN STABLE CONDITION AT THIS TIME
[2021-11-14] MEDS: INSULIN LISPRO SLIDING SCALE 100 UNITS/ML VIAL SUBQ PRN (16:31)
[2021-11-14] MEDS ORDERED: EPOETIN ALFA-EPBX 4,000 UNITS/ML VIAL SUBQ SCH (16:37)
[2021-11-14] MEDS: HYDROcodone/APAP 5/325 MG 1 TAB TAB PO PRN (18:10)
--- NOTE | 2021-11-14 19:00 | NUR ---
PT CURRENTLY ON NPO EXCEPT MEDS DIET DUE TO LEXISCAN PROCEDURE. PT IS DONE WITH LEXISCAN THIS AFTERNOON. DR REDDY MADE AWARE, TO RESUME RENAL DIET.
--- NOTE | 2021-11-14 19:23 | NUR ---
ENDORSED PT TO MOSAIC TECHNICIAN NURSE, PT IN STABLE CONDITION
[2021-11-14 20:00] VITALS: BP 88/44
[2021-11-14] MEDS: INSULIN LANTUS 100 UNITS/ML 10 ML VIAL SUBQ SCH (20:48)
[2021-11-15] MEDS: GAUZE TP SCH ×2 (01:05→12:48)
[2021-11-15] MEDS: MORPHINE SULFATE 2 MG/ML SYR IVP PRN ×4 (03:42→19:26)
[2021-11-15 04:00] VITALS: BP 146/93
[2021-11-15] MEDS: FAMOTIDINE 20 MG TAB PO SCH (05:48)
[2021-11-15 06:16] LABS: BASOPHILS # (AUTO) 0.3 K/uL (0.00-0.22); BASOPHILS % (AUTO) 4.4 % (0.0-2.0); EOSINOPHILS # (AUTO) 0.2 K/uL (0-0.4); EOSINOPHILS % (AUTO) 2.7 % (0.0-4.0); HEMATOCRIT 33.7 % (36-48); LYMPHOCYTES # (AUTO) 1.2 K/uL (2.5-16.5); LYMPHOCYTES % (AUTO) 20.9 % (20.5-51.1); MEAN CORPUSCULAR HEMOGLOBIN 30 pg (27-31); MEAN CORPUSCULAR HGB CONC 33 g/dL (33-37); MEAN CORPUSCULAR VOLUME 91.2 fL (80-94); MONOCYTES # (AUTO) 0.5 K/uL (0.8-1.0); MONOCYTES % (AUTO) 8.2 % (1.7-9.3); NEUTROPHILS # (AUTO) 3.8 K/uL (1.8-7.7); NEUTROPHILS % (AUTO) 63.8 % (42.2-75.2); PLATELET COUNT (AUTO) 362 K/uL (140-450)
[2021-11-15 06:36] LABS: ANION GAP 18.7 (8-16); CARBON DIOXIDE 26.8 mmol/L (21-32); POTASSIUM 4.5 mmol/L (3.5-5.1)
[2021-11-15 06:42] LABS: MAGNESIUM 2.3 mg/dL (1.8-2.4); PHOSPHORUS 6.4 mg/dL (2.5-4.9)
[2021-11-15] MEDS: BLOOD GLUCOSE MONITORING 1 DEV DEV FS SCH ×3 (07:00→17:04)
[2021-11-15] MEDS: INSULIN LISPRO SLIDING SCALE 100 UNITS/ML VIAL SUBQ PRN ×3 (07:01→17:07)
--- NOTE | 2021-11-15 07:30 | NUR ---
RECEIVED REPORT FROM MANAGER INVESTIGATIONS NURSE FOR CONTINUITY OF CARE. PT ASLEEP IN BED. BREATHING SYMMETRICAL. FLACC 0. CALL LIGHT WITHIN REACH. ALL SAFETY MEASURES IN PLACE.
[2021-11-15 07:33] LABS: CREATININE 6.1 mg/dL (0.6-1.3)
--- NOTE | 2021-11-15 07:35 | NUR ---
SPOKE WITH COLTON FROM LAB REGARDING CREATININE 6.1, REPORTED TO DR HARVEY, NO CHANGE IN ORDERS AT THIS TIME. DR HARVEY ALSO MADE AWARE THAT PT HAS ESRD AND IS RECEIVING HEMODIALYSIS Q --
[2021-11-15 08:00] VITALS: BP 155/98
[2021-11-15] MEDS: ATORVASTATIN 20 MG TAB PO SCH (09:38)
[2021-11-15] MEDS: LOSARTAN 50 MG TAB PO SCH (09:38)
[2021-11-15] MEDS: ECOTRIN 81 MG TABEC PO SCH (09:38)
[2021-11-15] MEDS: LABETALOL 200 MG TAB PO SCH (09:39)
--- NOTE | 2021-11-15 10:20 | NUR ---
CALLED BY PT, NOTED LEFT HAND IV LINE ALREADY OUT. NO ACTIVE BLEEDING NOTED. RIGHT WRIST IV LINE 22G STILL INTACT.
[2021-11-15 12:00] VITALS: BP 161/101
--- NOTE | 2021-11-15 12:31 | NUR ---
PT'S BP IS 161/101, DENIES HEADACHE/DIZZINESS. LEFT MESSAGE TO DR HARVEY, AWAITING RESPONSE.
--- NOTE | 2021-11-15 12:43 | NUR ---
RECEIVED ORDER FROM DR HARVEY FOR ONE TIME DOSE OF HYDRALAZINE 50MG. PT AWARE.
[2021-11-15] MEDS ORDERED: hydrALAZINE 25 MG TAB PO SCH (13:00)
[2021-11-15] MEDS ORDERED: ONDANSETRON 4 MG/2 ML VIAL IVP PRN (13:15)
--- NOTE | 2021-11-15 13:22 | NUR ---
RECEIVED ORDERS FROM DR HARVEY, PT AWARE.
[2021-11-15] MEDS ORDERED: PANTOPRAZOLE 40 MG INJ VIAL IVP SCH (13:25)
--- NOTE | 2021-11-15 13:34 | NUR ---
PROTONIX ONE TIME DOSE FOR TODAY GIVEN FOR C/O ACID REFLUX. PT MADE AWARE THAT PROTONIX WILL BE GIVEN DAILY STARTING TOMORROW.
[2021-11-15] MEDS ORDERED: LABETALOL 200 MG TAB PO SCH (15:00)
[2021-11-15] MEDS ORDERED: LANTUS SUBQ (15:15)
[2021-11-15] MEDS ORDERED: FAMO20TA13 PO (15:15)
[2021-11-15 16:00] VITALS: BP 98/51
--- NOTE | 2021-11-15 16:00 | NUR ---
LABETALOL NOT GIVEN DUE TO DECREASED BP 98/51. PT IN STABLE CONDITION
[2021-11-15 16:15] VITALS: BP 161/101
--- NOTE | 2021-11-15 17:16 | NUR ---
PT FOR DISCHARGE, AWAITING RN TELEMETRY.
--- NOTE | 2021-11-15 17:38 | NUR ---
SPOKE WITH JACKSON SISTER, STATED SHE WILL POLYGRAPH TECHNICIAN PT AT 1930 TER[address]. PT AWARE.
--- NOTE | 2021-11-15 19:09 | NUR ---
ENDORSED PT TO FEED INSPECTION SUPERVISOR NURSE. RN MADE AWARE PT IS FOR DISCHARGE, AWAITING STORE ADMINISTRATIVE ASSISTANT BY SISTER. PT IN STABLE CONDITION
--- NOTE | 2021-11-15 19:10 | NUR ---
RECEIVED PT REPORT FROM AM NURSE RE: PT'S DISCHARGE TONIGHT. POC REVIEWED FOR CONTINUITY OF CARE.
--- NOTE | 2021-11-15 19:30 | NUR ---
PT HAS DISCHARGE PAPERS. C/O 06/03 MIDDLE CHEST PRESSURE RADIATING TO CENTER BACK. RECEIVED MSO4 2MG /1ML IVP. CALL LIGHT WITHIN REACH. WILL CONTINUE TO OBSERVE.
--- NOTE | 2021-11-15 19:40 | NUR ---
REMOVED TELE BOX AND PADS FROM PT. PT LEFT MST UNIT VIA W/C @ 19:50 11/15/21 TO AWAITING VEHICLE OUTSIDE LOBBY, ACCOMPANIED BY RN. ALL PAPERS SIGNED AND PERSONAL BELONGINGS TAKEN.
[2021-11-16] MEDS ORDERED: EPOETIN ALFA-EPBX 4,000 UNITS/ML VIAL SUBQ SCH (09:00)
[2021-11-16] MEDS ORDERED: PANTOPRAZOLE 40 MG INJ VIAL IVP SCH (09:00)
== END 2021-11-15 19:45 | disposition home health service (06) | DRG 871 ==
LOC: MED 02:55 → MTU 10:52
PROC: 5A1D70Z Performance of Urinary Filtration, Intermittent, Less than 6 Hours Per Day (ICD-10-PCS; principal; 2021-11-11)
PROC: 5A1D70Z Performance of Urinary Filtration, Intermittent, Less than 6 Hours Per Day (ICD-10-PCS; 2021-11-14)
DX: A41.9 Sepsis, unspecified organism (principal); N17.0 Acute kidney failure with tubular necrosis; N18.6 End stage renal disease; J96.00 Acute respiratory failure, unspecified whether with hypoxia or hypercapnia; E10.52 Type 1 diabetes mellitus with diabetic peripheral angiopathy with gangrene; I96 Gangrene, not elsewhere classified; I13.11 Hypertensive heart and chronic kidney disease without heart failure, with stage 5 chronic kidney disease, or end stage renal disease; E10.22 Type 1 diabetes mellitus with diabetic chronic kidney disease; K82.8 Other specified diseases of gallbladder; L89.609 Pressure ulcer of unspecified heel, unspecified stage; Z20.822 Contact with and (suspected) exposure to COVID-19; D63.8 Anemia in other chronic diseases classified elsewhere; R16.0 Hepatomegaly, not elsewhere classified; N20.0 Calculus of kidney; E10.621 Type 1 diabetes mellitus with foot ulcer; L97.529 Non-pressure chronic ulcer of other part of left foot with unspecified severity; L97.519 Non-pressure chronic ulcer of other part of right foot with unspecified severity; E10.65 Type 1 diabetes mellitus with hyperglycemia; R07.89 Other chest pain; E78.5 Hyperlipidemia, unspecified; Z79.4 Long term (current) use of insulin; Z99.2 Dependence on renal dialysis; Z79.899 Other long term (current) drug therapy; Z83.3 Family history of diabetes mellitus
CPT/HCPCS: 36415; 71045; 76705; 78445; 78582; 80048; 80053; 82009; 82948; 83036; 83605; 83690; 83735; 84100; 84443; 84484; 84703; 85025; 85610; 85730; 87040; 87081; 93017; 93925; 93970; 96361; 96365; 96375; 96376; 99285; A9500; A9502; A9510; C9113; J0696; J1200; J1644; J1815; J2270; J2405; J2765; J2785; J7120; Q0092; Q5106

== ENCOUNTER 2021-11-17 12:20 | Emergency (ER) | payer OTHER ==
[~2021-11-17] VITALS: Ht 157.5 cm; Wt 52.9 kg
[2021-11-17 12:20] VITALS: BP 117/78
[~2021-11-17 12:20] MED LIST: FAMO-92 PO; FAMO20TA13 PO; LABE200T9 PO; LANS15EC28 PO; LANTUS SUBQ; LOSA100T1 PO
--- NOTE | 2021-11-17 13:03 | NUR ---
DR BARKER AT BEDSIDE EVALUATING PT
[2021-11-17] MEDS ORDERED: MORPHINE SULFATE 4 MG/ML SYR IVP ONE (13:05)
[2021-11-17] MEDS ORDERED: NACL 0.9% 1,000 ML IV ONE (13:05)
[2021-11-17] MEDS ORDERED: FAMOTIDINE 20 MG/2 ML VIAL IVP ONE (13:05)
[2021-11-17] MEDS ORDERED: ONDANSETRON 4 MG/2 ML VIAL IVP ONE (13:05)
--- NOTE | 2021-11-17 13:17 | NUR ---
RAD AT BEDSIDE
[2021-11-17] MEDS ORDERED: NACL 0.9% 250 ML IV ONE (13:30)
[2021-11-17] MEDS ORDERED: FAMOTIDINE 20 MG/2 ML VIAL ONE (13:30)
[2021-11-17 13:51] LABS: BASOPHILS # (AUTO) 0.2 K/uL (0.00-0.22); BASOPHILS % (AUTO) 2.7 % (0.0-2.0); EOSINOPHILS # (AUTO) 0.1 K/uL (0-0.4); EOSINOPHILS % (AUTO) 1.4 % (0.0-4.0); HEMOGLOBIN 10.4 g/dL (12.0-16.0); LYMPHOCYTES # (AUTO) 1.4 K/uL (2.5-16.5); MEAN CORPUSCULAR HEMOGLOBIN 30 pg (27-31); MEAN CORPUSCULAR HGB CONC 33 g/dL (33-37); MEAN CORPUSCULAR VOLUME 91.8 fL (80-94); MONOCYTES # (AUTO) 0.9 K/uL (0.8-1.0); MONOCYTES % (AUTO) 11.6 % (1.7-9.3); NEUTROPHILS # (AUTO) 5.1 K/uL (1.8-7.7); NEUTROPHILS % (AUTO) 66.3 % (42.2-75.2); PLATELET COUNT (AUTO) 331 K/uL (140-450); RED BLOOD CELL COUNT(AUTO) 3.49 MIL/uL (4.20-5.40); RED CELL DISTRIBUTION WIDTH 13.8 % (11.6-13.7); WHITE BLOOD COUNT (AUTO) 7.7 K/uL (4.8-10.8)
[2021-11-17 14:30] LABS: ALBUMIN 3.3 g/dL (3.4-5.0); CARBON DIOXIDE 18.1 mmol/L (21-32); POTASSIUM 4.1 mmol/L (3.5-5.1); TOTAL BILIRUBIN 0.6 mg/dL (0.0-1.0)
[2021-11-17 15:07] LABS: CREATININE 6.5 mg/dL (0.6-1.3)
[2021-11-17] MEDS ORDERED: ASPIRIN 325 MG TAB PO ONE (15:40)
--- NOTE | 2021-11-17 15:46 | NUR ---
JACKSNO SWABBED AND TAKEN TO LAB
[2021-11-17] MEDS ORDERED: AMLO2.5T PO (16:17)
--- NOTE | 2021-11-17 17:18 | NUR ---
PT STATES INCREASED BURPING, PAIN AFTER PO CHALLENGE.
--- NOTE | 2021-11-17 18:05 | NUR ---
PT GIVEN SALTINES, TATO, AND PUDDING, PER REQUEST
[2021-11-17] MEDS ORDERED: ALUM355S59 PO (18:43)
[2021-11-17] MEDS ORDERED: DIPH25TA53 PO (18:43)
[2021-11-17] MEDS ORDERED: METO-485 PO (18:43)
[2021-11-17 18:56] VITALS: BP 128/75
--- NOTE | 2021-11-17 19:11 | NUR ---
Patient discharged with v/s stable. Written and verbal after care instructions given REGARDING N/V and explained. Patient alert, oriented and verbalized understanding of instructions. Ambulatory with steady gait. All questions addressed prior to discharge. ID band removed. Patient advised to follow up with PMD. Rx of MAALOX, BENADRYL, REGLAN given. Patient educated on indication of medication including possible reaction and side effects. Opportunity to ask questions provided and answered.
== END 2021-11-17 19:11 | disposition home or self-care (01) ==
LOC: MED 12:20
DX: K80.42 Calculus of bile duct with acute cholecystitis without obstruction (principal); Z20.822 Contact with and (suspected) exposure to COVID-19; E11.22 Type 2 diabetes mellitus with diabetic chronic kidney disease; I12.0 Hypertensive chronic kidney disease with stage 5 chronic kidney disease or end stage renal disease; N18.6 End stage renal disease
CPT/HCPCS: 36415; 71045; 80053; 83605; 83690; 83880; 84484; 85025; 87040; 87426; 93005; 96361; 96374; 96375; 99285; J2270; J2405; J3490; J7030

== ENCOUNTER 2021-11-21 15:49 | Emergency (ER) | payer OTHER ==
[~2021-11-21] VITALS: Ht 157.5 cm; Wt 59.0 kg
[~2021-11-21 15:49] MED LIST changes: +ALUM355S59 PO; +AMLO2.5T PO; +DIPH25TA53 PO; -FAMO-92 PO; -FAMO20TA13 PO; -LABE200T9 PO; -LANS15EC28 PO; +METO-485 PO
[2021-11-21 16:05] VITALS: BP 138/99
[2021-11-21] MEDS ORDERED: ACETAMINOPHEN EXTRA STRENGTH 500 MG TAB PO ONE ×2 (17:35→20:20)
[2021-11-21] MEDS ORDERED: IBUPROFEN 600 MG TAB PO ONE (18:10)
[2021-11-21 18:54] LABS: BASOPHILS # (AUTO) 0.1 K/uL (0.00-0.22); BASOPHILS % (AUTO) 1.2 % (0.0-2.0); EOSINOPHILS # (AUTO) 0.3 K/uL (0-0.4); EOSINOPHILS % (AUTO) 3.8 % (0.0-4.0); HEMATOCRIT 26.7 % (36-48); HEMOGLOBIN 8.9 g/dL (12.0-16.0); LYMPHOCYTES % (AUTO) 14.2 % (20.5-51.1); MEAN CORPUSCULAR HEMOGLOBIN 30 pg (27-31); MEAN CORPUSCULAR HGB CONC 33 g/dL (33-37); MONOCYTES # (AUTO) 0.5 K/uL (0.8-1.0); MONOCYTES % (AUTO) 7.3 % (1.7-9.3); NEUTROPHILS # (AUTO) 5.4 K/uL (1.8-7.7); NEUTROPHILS % (AUTO) 73.5 % (42.2-75.2); PLATELET COUNT (AUTO) 258 K/uL (140-450); RED BLOOD CELL COUNT(AUTO) 2.93 MIL/uL (4.20-5.40); RED CELL DISTRIBUTION WIDTH 14.2 % (11.6-13.7); WHITE BLOOD COUNT (AUTO) 7.4 K/uL (4.8-10.8)
[2021-11-21 19:21] LABS: ALBUMIN 2.9 g/dL (3.4-5.0); CARBON DIOXIDE 27.4 mmol/L (21-32); POTASSIUM 4.4 mmol/L (3.5-5.1); TOTAL BILIRUBIN 0.2 mg/dL (0.0-1.0)
[2021-11-21 19:23] LABS: CREATININE 4.1 mg/dL (0.6-1.3)
[2021-11-21 20:31] VITALS: BP 176/97
== END 2021-11-21 20:31 | disposition home or self-care (01) ==
LOC: MED 15:49
DX: R55 Syncope and collapse (principal); R41.0 Disorientation, unspecified; R68.83 Chills (without fever); E11.9 Type 2 diabetes mellitus without complications; I10 Essential (primary) hypertension; Z88.1 Allergy status to other antibiotic agents; Z79.899 Other long term (current) drug therapy; Z98.890 Other specified postprocedural states; Z79.4 Long term (current) use of insulin
CPT/HCPCS: 36415; 71045; 80053; 83605; 85025; 87040; 93005; 99285; Q0092

== ENCOUNTER 2021-11-22 00:50 | Emergency (ER) | payer OTHER ==
[~2021-11-22] VITALS: Ht 157.5 cm; Wt 58.2 kg
[2021-11-22 00:55] VITALS: BP 155/96
--- NOTE | 2021-11-22 01:04 | NUR ---
PT TAKEN TO BED 11
--- NOTE | 2021-11-22 01:12 | NUR ---
PT PRODUCES LITTLE TO NO URINE; UNABLE TO COLLECT UA FOR PREG OR ANALYSIS.
--- NOTE | 2021-11-22 01:17 | NUR ---
X-Ray at bedside.
--- NOTE | 2021-11-22 01:20 | NUR ---
LABS DRAWN AT BEDSIDE
--- NOTE | 2021-11-22 01:20 | NUR ---
XRAY AT BEDSIDE
[2021-11-22 01:33] LABS: BASOPHILS # (AUTO) 0.1 K/uL (0.00-0.22); BASOPHILS % (AUTO) 1.4 % (0.0-2.0); EOSINOPHILS # (AUTO) 0.2 K/uL (0-0.4); EOSINOPHILS % (AUTO) 3.5 % (0.0-4.0); HEMATOCRIT 26.9 % (36-48); HEMOGLOBIN 8.7 g/dL (12.0-16.0); LYMPHOCYTES % (AUTO) 15.9 % (20.5-51.1); MEAN CORPUSCULAR HEMOGLOBIN 30 pg (27-31); MEAN CORPUSCULAR HGB CONC 32 g/dL (33-37); MEAN CORPUSCULAR VOLUME 94.3 fL (80-94); MONOCYTES # (AUTO) 0.4 K/uL (0.8-1.0); MONOCYTES % (AUTO) 6.3 % (1.7-9.3); NEUTROPHILS # (AUTO) 4.4 K/uL (1.8-7.7); NEUTROPHILS % (AUTO) 72.9 % (42.2-75.2); PLATELET COUNT (AUTO) 244 K/uL (140-450); RED BLOOD CELL COUNT(AUTO) 2.86 MIL/uL (4.20-5.40); RED CELL DISTRIBUTION WIDTH 14.4 % (11.6-13.7)
[2021-11-22 01:46] LABS: ALBUMIN 2.8 g/dL (3.4-5.0); ANION GAP 15.8 (8-16); CARBON DIOXIDE 24.8 mmol/L (21-32); POTASSIUM 5.6 mmol/L (3.5-5.1); TOTAL BILIRUBIN 0.3 mg/dL (0.0-1.0)
[2021-11-22 01:48] LABS: CREATININE 5.2 mg/dL (0.6-1.3)
--- NOTE | 2021-11-22 01:56 | NUR ---
STATES HER DIALYSIS WAS CUT BACK 30 MINS 31 Y/O FEMALE BIB SELF, C/O DIFFICULTY BREATHING X1 DAY. PATIENT PRESENTS TO ED WITH BGL "TOO HIGH TO READ" BY GLUCOMETER. PT STATES SHE HAD DIALYSIS ON SUNDAY BUT THE SESSION WAS CUT SHORT BY 30 MINUTES. PT ALSO STATES THAT LAST NIGHT SHE FELL ASLEEP PRIOR TO TAKING HER EVENING MEDICATIONS AND BLOOD IN STOOL SINCE YESTERDAY. DENIES N/V/D; SKIN IS ASHEN/WARM/DRY W/ DIABETIC ULCERS ON HER HEELS; AAOX4 WITH EVEN AND STEADY GAIT; LUNGS CLEAR BL; HR EVEN AND REGULAR; PT DENIES ANY FEVER, CP, OR COUGH AT THIS TIME; PATIENT STATES PAIN OF 7/10 AT THIS TIME; VSS; PATIENT POSITIONED FOR COMFORT; HOB ELEVATED; BEDRAILS UP X1; BED DOWN. ER MD MADE AWARE OF PT STATUS. DIALYSIS M/W/F W/ PORT IN UPPER RIGHT CHEST. HX: RF, DM ALLERGIES TO AMOXICILLIN MEDS: NOVALOG, LEVAMIR, LABETALOL, PEPCID, NORVASC, LOSARTAN
--- NOTE | 2021-11-22 02:03 | NUR ---
RT AT BEDSIDE
[2021-11-22] MEDS: ALBUTEROL 0.083% 2.5 MG/3 ML NEBU INH ONE (02:06)
[2021-11-22] MEDS: LACTATED RINGERS 1,000 ML IV ONE (02:26)
[2021-11-22] MEDS: INSULIN REGULAR, HUMAN 100 UNIT/ML VIAL IVP ONE ×2 (02:27→05:16)
[2021-11-22] MEDS: HYDROcodone/APAP 7.5/325 MG 1 TAB PO ONE (04:14)
--- NOTE | 2021-11-22 06:00 | NUR ---
labs drawn at bedside
--- NOTE | 2021-11-22 06:08 | NUR ---
talking with pt
[2021-11-22 06:26] LABS: ANION GAP 14.3 (8-16); CARBON DIOXIDE 24.4 mmol/L (21-32); POTASSIUM 4.7 mmol/L (3.5-5.1)
[2021-11-22 06:36] LABS: CREATININE 5.7 mg/dL (0.6-1.3)
[2021-11-22] MEDS: MORPHINE SULFATE 4 MG/ML SYR IVP ONE (07:10)
--- NOTE | 2021-11-22 07:24 | NUR ---
REPORT GIVEN TO EDGARDO GARRETT
--- NOTE | 2021-11-22 08:10 | NUR ---
Patient discharged with v/s stable. Written and verbal after care instructions given and explained with teachback. Patient verbalized understanding. Ambulatory with steady gait. All questions addressed prior to discharge. Advised to follow up with PMD.
[2021-11-22] MEDS: NACL 0.9% 250 ML IV ONE (08:33)
[2021-11-22] MEDS: INSULIN REGULAR, HUMAN 100 UNIT/ML VIAL SUBQ ONE (08:39)
[2021-11-22] MEDS: ENALAPRILAT 2.5 MG/2 ML VIAL IVP ONE (09:49)
[2021-11-22 10:17] VITALS: BP 157/81
--- NOTE | 2021-11-22 10:17 | NUR ---
Patient discharged with v/s stable. Written and verbal after care instructions given and explained with teachback . Patient verbalized understanding. Ambulatory with steady gait. All questions addressed prior to discharge. Advised to follow up with PMD.
== END 2021-11-22 10:17 | disposition home or self-care (01) ==
LOC: MED 00:50
DX: E11.22 Type 2 diabetes mellitus with diabetic chronic kidney disease (principal); I12.0 Hypertensive chronic kidney disease with stage 5 chronic kidney disease or end stage renal disease; N18.6 End stage renal disease; Z99.2 Dependence on renal dialysis
CPT/HCPCS: 36415; 71045; 80048; 80053; 82009; 82948; 83690; 83880; 84484; 84703; 85025; 93005; 94640; 96361; 96372; 96374; 96375; 96376; 99285; J1815; J2270; J3490; J7030; J7613; Q0092

== ENCOUNTER 2021-11-24 21:40 | Emergency (ER) | payer OTHER ==
[~2021-11-24] VITALS: Ht 160 cm; Wt 58.5 kg
[2021-11-24 21:50] VITALS: BP 174/108
--- NOTE | 2021-11-24 22:00 | NUR ---
PT AMBULATED TO ER BED 06 W/ STEADY GAIT.
--- NOTE | 2021-11-24 22:10 | NUR ---
Patient bib self for c/o N/v x a few days. Per patient unable to hold down b/p medication. WAS HERE LAST NIGHT FOR SAME COMPLAINT BUT LWBS. WAS SEEN HERE LAST WEEK FOR C/O GB PROBLEMS. medhx: ESRD (M.W.F), DM Type II, HTN
[2021-11-24] MEDS ORDERED: ONDANSETRON 4 MG ODT PO ONE (22:30)
--- NOTE | 2021-11-24 22:35 | NUR ---
Marlene escamilla in [facility] - 11/24/21 at [address]
[2021-11-24] MEDS ORDERED: NACL 0.9% 1,000 ML IV ONE (22:50)
[2021-11-24] MEDS ORDERED: ONDANSETRON 4 MG/2 ML VIAL IVP ONE (22:50)
[2021-11-24 22:55] LABS: BASOPHILS # (AUTO) 0.1 K/uL (0.00-0.22); BASOPHILS % (AUTO) 1.3 % (0.0-2.0); EOSINOPHILS # (AUTO) 0.1 K/uL (0-0.4); EOSINOPHILS % (AUTO) 1.4 % (0.0-4.0); HEMATOCRIT 25.7 % (36-48); HEMOGLOBIN 8.7 g/dL (12.0-16.0); LYMPHOCYTES # (AUTO) 1.1 K/uL (2.5-16.5); LYMPHOCYTES % (AUTO) 16.7 % (20.5-51.1); MEAN CORPUSCULAR HEMOGLOBIN 31 pg (27-31); MEAN CORPUSCULAR HGB CONC 34 g/dL (33-37); MEAN CORPUSCULAR VOLUME 90.7 fL (80-94); MONOCYTES # (AUTO) 0.6 K/uL (0.8-1.0); MONOCYTES % (AUTO) 8.6 % (1.7-9.3); NEUTROPHILS # (AUTO) 4.8 K/uL (1.8-7.7); PLATELET COUNT (AUTO) 279 K/uL (140-450); RED BLOOD CELL COUNT(AUTO) 2.83 MIL/uL (4.20-5.40); RED CELL DISTRIBUTION WIDTH 14.6 % (11.6-13.7); WHITE BLOOD COUNT (AUTO) 6.7 K/uL (4.8-10.8)
[2021-11-24] MEDS ORDERED: IBUPROFEN 800 MG TAB PO ONE (23:00)
[2021-11-24 23:11] LABS: ALBUMIN 2.7 g/dL (3.4-5.0); ANION GAP 14.3 (8-16); CARBON DIOXIDE 29.2 mmol/L (21-32); POTASSIUM 5.5 mmol/L (3.5-5.1); TOTAL BILIRUBIN 0.3 mg/dL (0.0-1.0)
[2021-11-24 23:13] LABS: CREATININE 6.7 mg/dL (0.6-1.3)
[2021-11-25] MEDS ORDERED: ONDA-188 SL (00:16)
[2021-11-25 00:37] VITALS: BP 148/86
== END 2021-11-25 00:37 | disposition home or self-care (01) ==
LOC: MED 21:40
DX: R11.2 Nausea with vomiting, unspecified (principal); E11.9 Type 2 diabetes mellitus without complications; I10 Essential (primary) hypertension; Z79.899 Other long term (current) drug therapy; Z79.4 Long term (current) use of insulin; Z88.1 Allergy status to other antibiotic agents
CPT/HCPCS: 36415; 80053; 82009; 82948; 84702; 85025; 96361; 96374; 99283; J2405; J7030